=== PATIENT | male | born 1980 | race Caucasian/White ===

== ENCOUNTER 2025-04-12 19:40 | Emergency (ER) | payer OTHER ==
[~2025-04-12] VITALS: Ht 170.2 cm; Wt 90.7 kg
[2025-04-12] MEDS ORDERED: AMOX500 PO ×2 (20:30→20:31)
== END 2025-04-12 20:38 | disposition home or self-care (01) ==
LOC: ER 19:40
DX: H66.92 Otitis media, unspecified, left ear (principal); Z79.899 Other long term (current) drug therapy
CPT/HCPCS: 99282; A9270